=== PATIENT | female | born 1950 | race Caucasian/White ===

== ENCOUNTER 2020-01-20 17:27 | Observation (INO) ==
[2020-01-20] MEDS ORDERED: NITROGLYCERIN 0.4 MG/TAB BTL SL ONE (17:42)
[2020-01-20 18:20] LABS: Hematocrit 37.9 % (37.0-47.0); Hemoglobin 11.8 gm/dL (12.5-16.0); Mean Cell Volume 101.9 fl (78-100); Mean Corpuscular Hemoglobin 31.7 pg (27-31); Mean Corpuscular Hgb Conc 31.1 g/dl (32-36); Mean Platelet Volume 10.9 fl (8-12.5); Neutrophil # 3.4 K/mm3 (1.3-6.0); Neutrophil % 57.9 % (42-75.0); Platelet Count 181 K/mm3 (150-450); Red Blood Count 3.72 M/mm3 (4.2-5.4); Red Cell Distribution Width 14.3 % (11.5-14.0); White Blood Count 5.9 K/mm3 (4.0-10.5)
[2020-01-20 18:29] LABS: Prothrombin Time (Patient) 26.9 Seconds (9.1-10.7)
[2020-01-20 18:37] LABS: Albumin * 3.1 gm/dl (3.4-5.0); Anion Gap 6.2 mmol/L (6.8-13.8); BUN/Creatinine Ratio 14.9 (9.0-21.6); Bilirubin, Total 0.4 mg/dL (0.0-1.1); Ca. Corrected For Albumin 9.3 mg/dL (8.4-10.2); Calcium * 8.9 mg/dL (7.9-10.9); Carbon Dioxide 33.2 mmol/L (24-32.6); INR 2.83 INR (0.92-1.08); Partial Thrombolplastin Time 36.1 Seconds (24-32); Potassium 4.4 mmol/L (3.4-4.6); Total Protein 7.8 gm/dL (6.2-8.2); Troponin I 0.02 ng/mL (0.00-0.10)
--- NOTE | 2020-01-20 19:08 | ERNOTE ---
<Scotty Hill - Last Filed: 01/20/20 19:34> Chest Pain/Cardiac HPI Date of Service: 01/20/20 Chief Complaint: Chest Pain Time Seen by Provider: 01/20/20 17:34 Source: patient, family Exam Limitations: no limitations Immunizations: IMMUNIZATION HX Immunizations Up to Date Yes History of Influenza Vaccine Yes Hx Pneumococcal Vaccination Yes Allergies/Adverse Reactions: Allergies naproxen sodium [From Aleve] Allergy (Verified 08/09/19 13:05) Home Medications: HOME MEDICATIONS Albuterol Sulfate [Albuterol Sulfate 0.63 MG/3ML] 0.63 mg IH QID PRN 12/21/15 [Last Taken Unknown] Calcium Carbonate/Vitamin D3 [Calcium 600 + Vit D3 800 Tab] 1 each PO DAILY 12/21/15 [Last Taken Unknown] Metoprolol Succinate [Toprol Xl] 100 mg PO BID 12/21/15 [Last Taken Unknown] Omeprazole [Prilosec] 20 mg PO QAM 12/21/15 [Last Taken Unknown] Pregabalin [Lyrica] 75 mg PO QAM 12/21/15 [Last Taken Unknown] Pregabalin [Lyrica] 150 mg PO QPM 12/21/15 [Last Taken Unknown] Warfarin Sodium [Coumadin] 1 mg PO MOWEFR 12/21/15 [Last Taken Unknown] Atorvastatin Calcium [Lipitor] 20 mg PO DAILY 03/20/17 [Last Taken Unknown] Lisinopril [Prinivil] 10 mg PO DAILY 08/09/19 [Last Taken Unknown] Albuterol Sulfate [Ventolin HFA] 2 puff INHALATION Q6H PRN 01/20/20 [Last Taken Unknown] Budesonide/Formoterol Fumarate [Symbicort 160-4.5 Mcg Inhaler] 2 puff INHALATION BID 01/20/20 [Last Taken Unknown] Omeprazole 40 mg PO HS 01/20/20 [Last Taken Unknown] Warfarin Sodium 2 mg PO SUTUTHSA 01/20/20 [Last Taken Unknown] Narrative: patient presents to ed with c/o acute onset of chest pain, has had aotic anurysm and aortic valve replacement, pain started while at rest Timing: constant, getting worse Severity/Quality: dull, indigestion, pressure Location: central Chest Pain Radiation: no radiation Activities at Onset: none Modifying Factors - Improves: Present: nothing Modifying Factors - Worsens: Present: nothing Nitro Today/Relief: no nitro taken today Aspirin Treatment Today: no aspirin today Associated Symptoms: Present: palpitations Prior Chest Pain/Cardiac Workup: Reports: prior chest pain, heart attack, cardiac cath, other - aortic anuryms aotic valve replacement Prior Treatment: Reports: recently seen Review of Systems - Review of Systems Constitutional: Present: See HPI EYE: Present: no symptoms reported ENT: Present: no symptoms reported Respiratory: Present: no symptoms reported Cardiology: Present: See HPI, chest pain Gastrointestinal/Abdominal: Present: no symptoms reported Genitourinary: Present: no symptoms reported Musculoskeletal: Present: no symptoms reported Skin: Present: no symptoms reported Neurological: Present: no symptoms reported Endocrine: Present: no symptoms reported Hematologic/Lymphatic: Present: no symptoms reported Psych: Present: no symptoms reported All Other Systems: All systems neg except as marked Medical History (Last Reviewed 01/20/20 @ 18:49 by Shawnee Neves RN) GERD (gastroesophageal reflux disease) (Acute) Hyperlipemia (Acute) Hypertension (Acute) COPD (chronic obstructive pulmonary disease) (Acute) Aortic aneurysm (Acute) Surgical History: Surgical History (Last Reviewed 01/20/20 @ 18:49 by Shawnee Neves RN) History of heart surgery (Acute) Family History: Family History (Last Reviewed 01/20/20 @ 18:49 by Shawnee Neves RN) Other Hypertension Social History: (Last Reviewed 01/20/20 @ 18:49 by Shawnee Neves RN) Tobacco: Smoking Status: Former smoker Alcohol: alcohol intake: current alcohol intake frequency: holiday/special occasion Substance Use: substance use type: does not use Physical Exam - Physical Exam General Appearance: Present: moderate distress, anxious Head Exam: Present: normal inspection, no evidence of injury Eye Exam: Normal inspection: bilateral, PERRL: bilateral, EOMI: bilateral Ears, Nose, Throat: Present: normal ENT inspection, normal pharynx Neck: Present: normal inspection, nontender Respiratory: Present: no respiratory distress, normal breath sounds, no accesso ry muscle use, chest nontender, lungs clear Cardiovascular/Chest: Present: tachycardia Peripheral Pulses: N=norm/S=strong/W=weak/B=bound/A=absent: Carotid (R): Normal, Carotid (L): Normal, Radial (R): Normal, Radial (L): Normal, Femoral (R): Normal, Femoral (L): Normal, Dorsalis-pedis (R): Normal, Dorsalis-pedis (L): Normal Gastrointestinal/Abdominal: Present: normal bowel sounds, nontender, nondistended, soft, no organomegaly Back Exam: Present: normal inspection, normal range of motion, no CVA tenderness, no vertebral tenderness Extremity Exam: Present: normal inspection, non-tender, normal range of motion, no edema Neurological Exam: Present: alert, oriented, normal mood/affect, no motor/sensory deficits Skin Exam: Present: normal color, warm/dry Lymphatic Exam: Present: no adenopathy Progress - Date and Time Seen: Date and Time: 01/20/20 19:07 chest pain resolved with one nitrosl - Results and Orders Patient's Lab Results:: I have reviewed the patient's lab results. - Vital Signs Patient's Vital Signs:: I have reviewed the patient's vital signs. Vital Signs: Vital Signs 01/20/20 17:34 01/20/20 17:50 01/20/20 17:54 Temperature 36.8 C Pulse Rate 87 82 Respiratory Rate 26 H Blood Pressure 193/118 H 188/97 H O2 Sat by Pulse Oximetry 99 01/20/20 18:22 Temperature Pulse Rate 76 Respiratory Rate 14 Blood Pressure 157/76 H O2 Sat by Pulse Oximetry 100 - EKG EKG #1 EKG: supraventricular tachycardia - X-Ray X-Ray #1 X-Ray: chest Interpretation: Interp. by me - no acute process - Progress/Reassessment Chief Complaint: Chest Pain Progress:: Improved - Transfer of Care Physician Sign Out: Scotty Hill Receiving Physician: Mary Moseley Expected Disposition: Discharge Plan - Plan Plan: to be discharged Departure Clinical Impression: Chest pain - Departure Disposition: Still a patient Condition: Good <Mary Moseley - Last Filed: 01/20/20 22:07> Chest Pain/Cardiac HPI Immunizations: IMMUNIZATION HX Immunizations Up to Date Yes History of Influenza Vaccine Yes Hx Pneumococcal Vaccination Yes Medical History (Last Reviewed 01/20/20 @ 21:42 by Mary Moseley MD) GERD (gastroesophageal reflux disease) (Acute) Hyperlipemia (Acute) Hypertension (Acute) COPD (chronic obstructive pulmonary disease) (Acute) Aortic aneurysm (Acute) Surgical History: Surgical History (Last Reviewed 01/20/20 @ 21:42 by Mary Moseley MD) History of heart surgery (Acute) History of aortic valve replacement with bioprosthetic valve Family History: Family History (Last Reviewed 01/20/20 @ 21:42 by Mary Moseley MD) Other Hypertension Social History: (Last Reviewed 01/20/20 @ 21:42 by Mary Moseley MD) Tobacco: Smoking Status: Former smoker Alcohol: alcohol intake: current alcohol intake frequency: holiday/special occasion Substance Use: substance use type: does not use Progress - Results and Orders Patient's Lab Results:: I have reviewed the patient's lab results. Results and Orders: Laboratory Tests 01/20/20 01/20/20 01/20/20 18:12 18:12 18:12 WBC 5.9 Hgb 11.8 L Plt Count 181 INR (Anticoag Therapy) 2.83 H Plasma Sodium 140 Potassium 4.4 Chloride 105 BUN 15 Creatinine 1.01 Random Glucose 112 H AST 21 ALT 17 L Troponin I 0.020 Total Protein 7.8 Albumin 3.1 L 01/20/20 20:45 WBC Hgb Plt Count INR (Anticoag Therapy) Plasma Sodium Potassium Chloride BUN Creatinine Random Glucose AST ALT Troponin I 0.024 Total Protein Albumin - Vital Signs Patient's Vital Signs:: I have reviewed the patient's vital signs. Vital Signs: Vital Signs 01/20/20 17:34 01/20/20 17:50 01/20/20 17:54 Temperature 36.8 C Pulse Rate 87 82 Respiratory Rate 26 H Blood Pressure 193/118 H 188/97 H O2 Sat by Pulse Oximetry 99 01/20/20 18:22 01/20/20 19:00 01/20/20 19:30 Temperature Pulse Rate 76 79 73 Respiratory Rate 14 20 16 Blood Pressure 157/76 H 169/96 H 172/90 H O2 Sat by Pulse Oximetry 100 100 100 01/20/20 20:00 01/20/20 20:30 01/20/20 21:00 Temperature Pulse Rate 84 86 85 Respiratory Rate 15 16 18 Blood Pressure 147/93 H 156/97 H 177/100 H O2 Sat by Pulse Oximetry 94 98 95 - EKG EKG #2 EKG: NSR EKG read: Interp. by me - nsr with no st elevation. ? partial RBBB - Progress/Reassessment Progress:: Unchanged Progress Note-Subjective: 01/20/20 21:44 Discussed patient's troponin levels, increasing. As I did so, she reports that she is having recurrence of the left shoulder pain. She states that blood pressure elevation is usually not up problem for her. She is somewhat frustrated that she has not yet had her evening medications despite the fact that she asked that they be held until she is discharged home. This includes lisinopril as well as 100 mg of metoprolol. She is given these medications, at that time her blood pressure is 170s over 100. She also asks for her evening dose of Coumadin as well as Tylenol for her headache. We will hold off on additional nitroglycerin at this time in hopes that decreasing the blood pressure may decrease her symptoms of left-sided shoulder pain. Discussed the fact that her troponins are increasing even at 2 to 3 hours of ER stay. I recommended that the patient be admitted for cardiac rule out. Discussed the case with hospitalist here who agrees to take the patient. EKG will be repeated, repeat troponins etc. will be followed.
[2020-01-20] MEDS ORDERED: METOPROLOL TARTRATE 100 MG TABLET PO ONE (21:27)
[2020-01-20] MEDS ORDERED: ACETAMINOPHEN 325 MG TABLET PO ONE (21:27)
[2020-01-20] MEDS ORDERED: LISINOPRIL 10 MG TABLET PO ONE (21:27)
[2020-01-20] MEDS ORDERED: PANTOPRAZOLE SODIUM 40 MG TABLET.EC PO ONE (21:29)
[2020-01-20] MEDS ORDERED: WARFARIN SODIUM 1 MG TABLET PO ONE (21:39)
[2020-01-20] MEDS ORDERED: ROSUVASTATIN CALCIUM 10 MG TABLET PO ONE (21:45)
[2020-01-20] MEDS ORDERED: PREGABALIN 75 MG CAPSULE PO ONE (21:45)
[2020-01-21] MEDS ORDERED: ACETAMINOPHEN 500 MG TABLET PO PRN (03:58)
[2020-01-21] MEDS ORDERED: ALBUTEROL SULFATE 200 PUFF INHALER IH PRN (04:14)
[2020-01-21] MEDS ORDERED: WARFARIN SODIUM 1 MG TABLET PO SCH ×2 (04:15→17:00)
[2020-01-21] MEDS ORDERED: hydrALAZINE HCL 20 MG/ML VIAL IV PRN (04:17)
[2020-01-21] MEDS: CALCIUM CARBONATE/VITAMIN D3 1 TAB TABLET PO SCH ×2 (05:04→08:28)
[2020-01-21] MEDS ORDERED: ALBUTEROL SULFATE 0.63 MG/3 ML VIAL.NEB IH PRN (05:15)
[2020-01-21] MEDS ORDERED: ALBUTEROL SULFATE 2.5 MG/0.5 ML VIAL.NEB IH PRN (06:45)
[2020-01-21] MEDS ORDERED: PANTOPRAZOLE SODIUM 20 MG TABLET.DR PO SCH (07:00)
--- NOTE | 2020-01-21 08:59 | HPDIS ---
Chief Complaint - Chief Complaint Date of Service: 01/21/20 Time of Service: 08:45 Chief Complaint: Chest pain History of Present Illness: 69-year-old female with history of aortic valve replacement presented to the ER yesterday with new onset chest pain that affected her left chest that radiated to her back. Initial EKG did not show any acute process, first troponins were negative in the ER. Vital signs are stable aside from some slightly elevated blood pressures. Chest pain had resolved with nitro. Her lab work was negative for any acute abnormalities. INR within appropriate limits for her aortic valve at 2.83. She is comfortable when she went to bed last night and had no concerns this morning. Patient placed under observation to rule out cardiac enzymes, last troponin came back negative as well. Vital signs are back within normal limits. Blood pressure within normal limits. No chest pain or any acute events overnight. She is scheduled to see her cardiothoracic surgeon in 5 days. Medical History (Last Reviewed 01/20/20 @ 21:42 by Mary Moseley MD) GERD (gastroesophageal reflux disease) (Acute) Hyperlipemia (Acute) Hypertension (Acute) COPD (chronic obstructive pulmonary disease) (Acute) Aortic aneurysm (Acute) Surgical History: Surgical History (Last Reviewed 01/20/20 @ 21:42 by Mary Moseley MD) History of heart surgery (Acute) History of aortic valve replacement with bioprosthetic valve Family History: Family History (Last Reviewed 01/20/20 @ 21:42 by Mary Moseley MD) Other Hypertension Social History: (Last Reviewed 01/20/20 @ 21:42 by Mary Moseley MD) Tobacco: Smoking Status: Former smoker Alcohol: alcohol intake: current alcohol intake frequency: holiday/special occasion Substance Use: substance use type: does not use Review Of Systems (GEN) - Review of Systems Generalized/Overall Review: Absent: Weakness, Chills, Fever EENTM: Present: No Symptoms Reported Respiratory: Absent: Cough, Shortness of Breath Cardiac: Absent: Chest Pain - Resolved, Palpitations Abdominal: Absent: Nausea, Vomiting, Abdominal Pain Genitourinary: Present: No Symptoms Reported Musculoskeletal: Present: No Symptoms Reported Immunizations: IMMUNIZATION HX Immunizations Up to Date Yes History of Influenza Vaccine Yes Hx Pneumococcal Vaccination Yes Allergies/Adverse Reactions: Allergies Allergy/AdvReac Type Severity Reaction Status Date / Time naproxen sodium [From Aleve] Allergy Verified 08/09/19 13:05 Home Medications: HOME MEDICATIONS Albuterol Sulfate [Albuterol Sulfate 0.63 MG/3ML] 0.63 mg IH QID PRN 12/21/15 [Last Taken Unknown] Calcium Carbonate/Vitamin D3 [Calcium 600-Vit D3 800 Tablet] 1 each PO DAILY 12/21/15 [Last Taken Unknown] Metoprolol Succinate [Toprol Xl] 100 mg PO BID 12/21/15 [Last Taken Unknown] Omeprazole [Prilosec] 20 mg PO QAM 12/21/15 [Last Taken Unknown] Pregabalin [Lyrica] 75 mg PO QAM 12/21/15 [Last Taken Unknown] Pregabalin [Lyrica] 150 mg PO QPM 12/21/15 [Last Taken Unknown] Warfarin Sodium [Coumadin] 1 mg PO MOWEFR 12/21/15 [Last Taken Unknown] Atorvastatin Calcium [Lipitor] 20 mg PO HS 03/20/17 [Last Taken Unknown] Lisinopril [Prinivil] 10 mg PO HS 08/09/19 [Last Taken Unknown] Albuterol Sulfate [Ventolin HFA] 2 puff INHALATION Q6H PRN 01/20/20 [Last Taken Unknown] Budesonide/Formoterol Fumarate [Symbicort 160-4.5 Mcg Inhaler] 2 puff INHALATION BID 01/20/20 [Last Taken Unknown] Omeprazole 40 mg PO HS 01/20/20 [Last Taken Unknown] Warfarin Sodium 2 mg PO SUTUTHSA 01/20/20 [Last Taken Unknown] Exam - Exam Vital Signs: Vital Signs - Last Taken Temp 37.4 C 01/21/20 06:12 Pulse 71 01/21/20 08:28 Resp 18 01/21/20 06:12 BP 144/86 01/21/20 08:28 Pulse Ox 94 01/21/20 06:12 Constitutional: Present: Alert, Oriented x3, Cooperative, Well developed, Elderly ENT Exam: Present: hearing grossly normal. Absent: nasal congestion, nasal drainage Eye Exam: bilateral eye: normal inspection, EOMI Neck: Present: non-tender, full range of motion, supple Respiratory: Present: lungs clear, normal breath sounds Cardiovascular/Chest: Present: regular rate, rhythm, no murmur, other - Aortic click heard Peripheral Pulses: radial (R): 2+, radial (L): 2+ Abdomen: Present: Normal bowel sounds, soft, nontender, nondistended Skin Exam: Present: normal color, warm/dry Neurologic: Present: alert, normal mood/affect, oriented x 3 Appearance: Present: appropriate appearance, appropriate insight Eye contact: Present: cooperative, good eye contact Thoughts: Present: normal thought pattern Diagnostic Studies: Abnormal Lab Results 01/20/20 01/20/20 01/20/20 Range/Units 18:12 18:12 18:12 RBC 3.72 L (4.2-5.4) M/mm3 Hgb 11.8 L (12.5-16.0) gm/dL MCV 101.9 H (78-100) fl MCH 31.7 H (27-31) pg MCHC 31.1 L (32-36) g/dl RDW 14.3 H (11.5-14.0) % Monocytes % 9.2 H (0.0-9) % PT 26.9 H (9.1-10.7) Seconds INR (Anticoag Therapy) 2.83 H (0.92-1.08) INR PTT (Marivel) 36.1 H (24-32) Seconds Carbon Dioxide 33.2 H (24-32.6) mmol/L Anion Gap 6.2 L (6.8-13.8) mmol/L Est GFR (Non-Af Amer) 58 L (60-130) mL/min Random Glucose 112 H (70-110) mg/dL ALT 17 L (19-67) U/L Albumin 3.1 L (3.4-5.0) gm/dl Laboratory Results WBC 5.9 K/mm3 (4.0-10.5) 01/20/20 18:12 RBC 3.72 M/mm3 (4.2-5.4) L 01/20/20 18:12 Hgb 11.8 gm/dL (12.5-16.0) L 01/20/20 18:12 Hct 37.9 % (37.0-47.0) 01/20/20 18:12 MCV 101.9 fl (78-100) H 01/20/20 18:12 MCH 31.7 pg (27-31) H 01/20/20 18:12 MCHC 31.1 g/dl (32-36) L 01/20/20 18:12 RDW 14.3 % (11.5-14.0) H 01/20/20 18:12 Plt Count 181 K/mm3 (150-450) 01/20/20 18:12 MPV 10.9 fl (8-12.5) 01/20/20 18:12 Immature Gran % (Auto) 0.30 % (0.001-0.429) 01/20/20 18: Immature Gran # (Auto) 0.02 K/mm3 (0.000-0.0310) 01/20/20 18:12 Neutrophils % 57.9 % (42-75.0) 01/20/20 18:12 Lymphocytes % 30.9 % (20-51) 01/20/20 18:12 Monocytes % 9.2 % (0.0-9) H 01/20/20 18:12 Eosinophils % 1.2 % (0.0-3.0) 01/20/20 18:12 Basophils % 0.5 % (0.0-1.0) 01/20/20 18:12 Nucleated RBC % 0.0 k/mm3 (0-1) 01/20/20 18:12 Neutrophils # 3.4 K/mm3 (1.3-6.0) 01/20/20 18:12 Lymphocytes # 1.81 k/mm3 (1.5-3.5) 01/20/20 18:12 Monocytes # 0.5 k/mm3 (0.0-1.0) 01/20/20 18: Eosinophils # 0.1 k/mm3 (0.0-0.7) 01/20/20 18:12 Absolute Basophils 0.0 k/mm3 (0.0-0.1) 01/20/20 18:12 PT 26.9 Seconds (9.1-10.7) H 01/20/20 18:12 INR (Anticoag Therapy) 2.83 INR (0.92-1.08) H 01/20/20 18:12 PTT ([place]) 36.1 Seconds (24-32) H 01/20/20 18:12 Sodium 140 mmol/L (132-142) 01/20/20 18:12 Plasma Sodium 140 mmol/L (130-142) 01/20/20 18:12 Potassium 4.4 mmol/L (3.4-4.6) 01/20/20 18:12 Chloride 105 mmol/L (97-106) 01/20/20 18:12 Carbon Dioxide 33.2 mmol/L (24-32.6) H 01/20/20 18:12 Anion Gap 6.2 mmol/L (6.8-13.8) L 01/20/20 18:12 BUN 15 mg/dL (3-23) 01/20/20 18:12 Creatinine 1.01 mg/dL (0.4-1.4) 01/20/20 18:12 Est GFR (Non-Af Amer) 58 mL/min (60-130) L 01/20/20 18:12 BUN/Creatinine Ratio 14.9 (9.0-21.6) 01/20/20 18:12 Random Glucose 112 mg/dL (70-110) H 01/20/20 18:12 Calcium 8.9 mg/dL (7.9-10.9) 01/20/20 18:12 Calcium Adj for Albumin 9.3 mg/dL (8.4-10.2) 01/20/20 18:12 Total Bilirubin 0.4 mg/dL (0.0-1.1) 01/20/20 18:12 AST 21 U/L (0-48) 01/20/20 18:12 ALT 17 U/L (19-67) L 01/20/20 18:12 Alkaline Phosphatase 128 U/L (50-170) 01/20/20 18:12 Troponin I 0.029 ng/mL (0.00-0.10) 01/20/20 22:35 Total Protein 7.8 gm/dL (6.2-8.2) 01/20/20 18:12 Albumin 3.1 gm/dl (3.4-5.0) L 01/20/20 18:12 Assessment/Plan - Narrative Narrative: 69-year-old female with history of aortic aneurysm repaired, admitted to the inpatient floor in observation to rule out acute coronary syndrome. Troponins negative x3. No EKG changes. Vital signs are stable, not hypoxic. Blood pressure initially elevated but improved to a normal range today. Patient cu rrently asymptomatic and feels well. Patient wanted to go home. Patient has plans to follow with her cardiothoracic surgeon in the next 5 days or so which I think will be good for her to make sure everything is appropriate with her cardiac situation. No changes made to her chronic medications. Her INR is in appropriate range for her aortic valve. Patient to be discharged home later this morning in stable condition. 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 Troponins negative x3. No EKG changes. Vital signs are stable, not hypoxic. Blood pressure initially elevated but improved to a normal range today. Patient currently asymptomatic and feels well. Patient wanted to go home. Patient has plans to follow with her cardiothoracic surgeon in the next 5 days or so which I think will be good for her to make sure everything is appropriate with her cardiac situation. No changes made to her chronic medications. Her INR is in appropriate range for her aortic valve. Patient to be discharged home later this morning in stable condition. Procedures Performed: none Results and Findings: Lab Pending Results 01/20/20 18:12: WBC 5.9, RBC 3.72 L, Hgb 11.8 L, Hct 37.9, MCV 101.9 H, MCH 31.7 H, MCHC 31.1 L, RDW 14.3 H, Plt Count 181, MPV 10.9, Immature Gran % (Auto) 0.30, Immature Gran # (Auto) 0.02, Neutrophils % 57.9, Lymphocytes % 30.9, Monocytes % 9.2 H, Eosinophils % 1.2, Basophils % 0.5, Nucleated RBC % 0.0, Neutrophils # 3.4, Lymphocytes # 1.81, Monocytes # 0.5, Eosinophils # 0.1, Absolute Basophils 0.0 01/20/20 18:12: PT 26.9 H, INR (Anticoag Therapy) 2.83 H, PTT (Marivel) 36.1 H 01/20/20 18:12: Sodium 140, Plasma Sodium 140, Potassium 4.4, Chloride 105, Carbon Dioxide 33.2 H, Anion Gap 6.2 L, BUN 15, Creatinine 1.01, Est GFR (Non-Af Amer) 58 L, BUN/Creatinine Ratio 14.9, Random Glucose 112 H, Calcium 8.9, Calcium Adj for Albumin 9.3, Total Bilirubin 0.4, AST 21, ALT 17 L, Alkaline Phosphatase 128, Troponin I 0.020, Total Protein 7.8, Albumin 3.1 L 01/20/20 20:45: Troponin I 0.024 01/20/20 22:35: Troponin I 0.029 Discharge Location: Home Disposition: Home self-care Condition: Stable Discharge Activity: Activity as tolerated Discharge Diet: Low fat/chol Complete Home Medications List: Complete Home Medication List: Albuterol Sulfate [Albuterol Sulfate 0.63 MG/3ML] 0.63 mg IH QID PRN 12/21/15 Calcium Carbonate/Vitamin D3 [Calcium 600-Vit D3 800 Tablet] 1 each PO DAILY 12/21/15 Metoprolol Succinate [Toprol Xl] 100 mg PO BID 12/21/15 Omeprazole [Prilosec] 20 mg PO QAM 12/21/15 Pregabalin [Lyrica] 75 mg PO QAM 12/21/15 Pregabalin [Lyrica] 150 mg PO QPM 12/21/15 Warfarin Sodium [Coumadin] 1 mg PO MOWEFR 12/21/15 Atorvastatin Calcium [Lipitor] 20 mg PO HS 03/20/17 Lisinopril [Prinivil] 10 mg PO HS 08/09/19 Albuterol Sulfate [Ventolin HFA] 2 puff INHALATION Q6H PRN 01/20/20 Budesonide/Formoterol Fumarate [Symbicort 160-4.5 Mcg Inhaler] 2 puff INHALATION BID 01/20/20 Omeprazole 40 mg PO HS 01/20/20 Warfarin Sodium 2 mg PO SUTUTHSA 01/20/20 Forms: Patient Portal Registration
[2020-01-21] MEDS ORDERED: PREGABALIN 75 MG CAPSULE PO SCH ×2 (09:00→17:00)
[2020-01-21] MEDS ORDERED: METOPROLOL SUCCINATE 100 MG TABLET.SA PO SCH (09:00)
[2020-01-21] MEDS ORDERED: FLUTICASONE PROPION/SALMETEROL 14 PUFF DISK.W.DEV IH SCH (09:00)
[2020-01-21 12:08] VITALS: BP 149/93
[2020-01-21] MEDS ORDERED: LISINOPRIL 10 MG TABLET PO SCH (21:00)
[2020-01-21] MEDS ORDERED: PANTOPRAZOLE SODIUM 40 MG TABLET.EC PO SCH (21:00)
[2020-01-21] MEDS ORDERED: ROSUVASTATIN CALCIUM 10 MG TABLET PO SCH (21:00)
[2020-01-22] MEDS ORDERED: WARFARIN SODIUM 1 MG TABLET PO SCH (17:00)
== END 2020-01-21 12:25 | disposition home or self-care (01) ==
LOC: ER 17:27 → MS 17:27
PROVIDERS: ADMIT Family Medicine; ATTEND Family Medicine
CPT/HCPCS: 36415; 71020; 71046; 80053; 84484; 85025; 85610; 85730; 93005; 99285